=== PATIENT | female | born 1970 | race Caucasian/White ===

== ENCOUNTER 2016-05-27 22:35 | Emergency (ER) | payer MEDICARE, MEDICAID | END 2016-05-28 02:44 | disposition home or self-care (01) | LOC: D.ER 22:35 | DX: S70.02XA Contusion of left hip, initial encounter (principal); W01.0XXA Fall on same level from slipping, tripping and stumbling without subsequent striking against object, initial encounter; Y93.89 Activity, other specified; Y92.019 Unspecified place in single-family (private) house as the place of occurrence of the external cause; J44.9 Chronic obstructive pulmonary disease, unspecified; I10 Essential (primary) hypertension; M81.0 Age-related osteoporosis without current pathological fracture; I26.99 Other pulmonary embolism without acute cor pulmonale; N81.10 Cystocele, unspecified; M06.9 Rheumatoid arthritis, unspecified ==

== ENCOUNTER 2017-01-01 10:31 | Emergency (ER) | payer MEDICARE | END 2017-01-01 14:16 | disposition home or self-care (01) | LOC: D.ER 10:31 | DX: S70.11XA Contusion of right thigh, initial encounter (principal); W01.0XXA Fall on same level from slipping, tripping and stumbling without subsequent striking against object, initial encounter; Y93.89 Activity, other specified; Y92.019 Unspecified place in single-family (private) house as the place of occurrence of the external cause; F17.200 Nicotine dependence, unspecified, uncomplicated ==

== ENCOUNTER 2018-03-02 11:34 | Emergency (ER) | payer MEDICARE ==
[~2018-03-02] VITALS: Ht 157.5 cm; Wt 54.5 kg
[2018-03-02 11:50] VITALS: Ht 157.5 cm; Wt 54.5 kg
[2018-03-02] MEDS ORDERED: XELJANZ5 MG PO (12:08)
[2018-03-02] MEDS ORDERED: TENORMIN25 MG PO (12:09)
[2018-03-02] MEDS ORDERED: ALENDRONATE SOD70 MG PO (12:09)
[2018-03-02] MEDS ORDERED: ULTRAM50 MG PO (12:10)
[2018-03-02] MEDS ORDERED: TOPAMAX50 MG PO (12:10)
[2018-03-02] MEDS ORDERED: BENTYL 20 MG TA20 MG PO (12:10)
[2018-03-02] MEDS ORDERED: VALIUM5 MG PO (12:11)
[2018-03-02] MEDS ORDERED: CATAPRES0.1 MG PO (12:12)
[2018-03-02] MEDS ORDERED: ASPIRIN81 MG PO (12:13)
[2018-03-02 12:46] LABS: BASOPHILS 0 % (0-2); EOSINOPHILS 0.2 % (0-7); HEMATOCRIT 41.9 % (36.0-48.0); HEMOGLOBIN 14.6 g/dL (12-16); IMMATURE GRANULOCYTES 0.3 % (0-5); LYMPHOCYTES 4.5 % (15-50); MCHC 34.8 g/dL (31.0-37.0); MEAN PLATELET VOLUME 9.4 fL (7.4-10.4); MONOCYTES 5.3 % (2-11); NEUTROPHILS 89.7 % (40-80); RBC 4.71 10x6/uL (4.00-5.40); RDW 13.9 % (11.5-14.5); WBC 10.4 10x3/uL (4.8-10.8)
[2018-03-02 12:51] LABS: PLATELET COUNT 174 10x3/uL (130-400)
[2018-03-02 12:56] LABS: APPEARANCE CLEAR (CLEAR); BILIRUBIN NEGATIVE (NEGATIVE); COLOR STRAW (YELLOW); GLUCOSE NEGATIVE (NEGATIVE); KETONE NEGATIVE (NEGATIVE); NITRITE NEGATIVE (NEGATIVE); PROTEIN NEGATIVE (NEGATIVE); UROBILINOGEN NORMAL (NORMAL)
[2018-03-02 13:01] LABS: ALBUMIN 4.1 g/dL (3.4-5.0); ALKALINE PHOSPHATASE 64 U/L (46-116); ALT (SGPT) 29 U/L (10-68); AMYLASE - SERUM 47 U/L (25-115); BILIRUBIN - TOTAL 0.29 mg/dL (0.2-1.3); CALC OSMOLALITY 288 mosm/kg (275-300); CALCIUM 8.7 mg/dL (8.5-10.1); CARBON DIOXIDE 26.1 mmol/L (21.0-32.0); CHLORIDE - SERUM 107 mmol/L (98-107); CREATININE - SERUM 0.8 mg/dL (0.6-1.3); GLUCOSE 100 mg/dL (74-106); LIPASE 241 U/L (73-393); POTASSIUM - SERUM 3.7 mmol/L (3.5-5.1); PROTEIN - SERUM 7.9 g/dL (6.4-8.2); SODIUM 144 mmol/L (136-145); UREA NITROGEN 18 mg/dL (7-18); eGFR NON AFRICAN AMERICAN 81 mL/min (90-120)
[2018-03-02] MEDS ORDERED: PHENERGAN25 M1 PO (13:45)
[2018-03-02 14:20] VITALS: BP 123/75
== END 2018-03-02 14:21 | disposition home or self-care (01) ==
LOC: D.ER 11:34
PROVIDERS: Family Medicine
DX: R11.2 Nausea with vomiting, unspecified (principal); R55 Syncope and collapse; M06.9 Rheumatoid arthritis, unspecified; Z86.73 Personal history of transient ischemic attack (TIA), and cerebral infarction without residual deficits